=== PATIENT | female | born 1990 | race Caucasian/White ===

== ENCOUNTER 2022-07-03 23:27 | Outpatient (CLI) | payer OTHER ==
[2022-07-04 00:13] VITALS: BP 134/72; PULSE 97; RESP 18; TEMP 97
--- NOTE | 2022-08-25 13:48 | P.MSEPDOC ---
Presenting Problems - Arrival Data Date of Arrival on Unit: 07/04/22 Time of Arrival on Unit: 23:27 Mode of Transport: Ambulatory - Complaint OB-Reason for Admission/Chief Complaint: Vaginal Bleeding Medical History - Information : 3 Para: 2 Term: 2 : 0 Abortions: Spontaneous or Elective: 0 Number of Living Children: 2 - Gestational Age Gestational Age by MATTHEW (wks/days): 27 Weeks and 5 Days Review of Systems - Review of Systems Constitutional: No problems Breast: No problems ENT: No problems Cardiovascular: No problems Respiratory: No problems Gastrointestinal: No problems Genitourinary: No problems Musculoskeletal: No problems Neurological: No problems Skin: No problems Vital Signs - Temperature Temperature: 97.0 F Temperature Source: Temporal Artery Scan - Pulse Pulse Oximetery Pulse Rate: 97 Pulse Assessment Method: Pulse Oximetry - Respirations Respiratory Rate: 18 Oxygen Delivery Method: Room Air O2 Sat by Pulse Oximetry: 98 - Blood Pressure Right Arm Blood Pressure: 134/72 Blood Pressure Mean: 92 Blood Pressure Source: Automatic Cuff Medical Screen Scoring - Assessment - Baby A Baseline FHR: 135 Heart Rate - NICHD Category: Category I (Normal) Physician Notification - Physician Notified Physician Notified Date: 07/03/22 Physician Notified Time: 23:52 Physician: Stacie Batista New Order Received: Yes - Notification Comment Comment: Dr. Batista called, report given on maternal and status, c/o vagi nal. bleeding and mild intercourse following intercourse, pt has no complications with her. . No external bleeding noted (only when pt wipes), no contractions noted, and. FHTs are category 1 with audible movement. Orders to discharge pt home on pelvic. rest until she follows up with her OB. Maternal Triage Index - Maternal Triage Index Presenting for scheduled procedure w/no complaint: No - Stat/Priority 1 Stat Priority 1: No - Urgent/Priority 2 Urgent Priority 2: No - Prompt/Priority 3 Prompt Priority 3: No - Non-Urgent/Priority 4 Non-Urgent Priority 4: Yes Criteria Met for Priority 4: 27 4/7 wks, vaginal bleeding following intercourse, only spotting in triage Disposition - Disposition OB Disposition: Discharge to home Discharge Date: 07/03/22 Discharge Time: 23:57 I agree with the RN Medical Screening Exam: Yes Case reviewed; plan agreed upon as documented in EMR&OBIX.: Yes Diagnosis: RELATED CONDITIONS, UNSPECIFIED, SECOND TRIMESTER
== END 2022-07-03 23:57 | disposition home or self-care (01) ==
LOC: FBPOP 23:27
PROVIDERS: ATTEND Obstetrics & Gynecology Obstetrics
DX: O26.892 Other specified pregnancy related conditions, second trimester (principal); Z3A.27 27 weeks gestation of pregnancy; D69.9 Hemorrhagic condition, unspecified; Z88.0 Allergy status to penicillin
CPT/HCPCS: 99203

== ENCOUNTER 2024-12-02 01:24 | Emergency (ER) | payer OTHER ==
[2024-12-02 01:34] VITALS: RESP 16; TEMP 98.4
--- NOTE | 2024-12-02 02:32 | ED ---
Skin/Abscess/FB HPI - General Chief complaint: Skin/Abscess/Foreign Body Stated complaint: Pruitis Ani Time Seen by Provider: 12/02/24 02:30 Source: patient, RN notes reviewed Mode of arrival: ambulatory Limitations: no limitations - History of Present Illness Initial comments: 34-year-old female presenting for pinworm infection. States her children are positive for pinworms and patient states she has been having some anal itching at night. States she did notice 1 white worm on her anus. She is requesting treatment for this today. Denies abdominal pain, vomiting. She is able to tolerate orals. - Related Data Home Medications Medication Instructions Recorded Confirmed Iron 18 mg PO DAILY 07/03/22 07/03/22 Vit No.179/Iron/Folic 1 each PO DAILY 07/03/22 07/03/22 [ Tablet] Previous Rx's Medication Instructions Recorded Mebendazole [Emverm chew] 100 mg PO ONCE #2 tab 12/02/24 Allergies Allergy/AdvReac Type Severity Reaction Status Date / Time Penicillins Allergy Rash/Hives Verified 12/02/24 01:33 Review of Systems ROS Statement: Those systems with pertinent positive or pertinent negative responses have been documented in the HPI. ROS Other: All systems not noted in ROS Statement are negative. Past Medical History Past Medical History: No Reported History History of Any Multi-Drug Resistant Organisms: None Reported Past Surgical History: Tubal Ligation Smoking Status: Never smoker Past Alcohol Use History: None Reported Past Drug Use History: None Reported General Exam Limitations: no limitations General appearance: alert, in no apparent distress Head exam: Present: atraumatic, normocephalic, normal inspection Eye exam: Present: normal appearance, PERRL, EOMI. Absent: scleral icterus, conjunctival injection, periorbital swelling GI/Abdominal exam: Present: soft, normal bowel sounds. Absent: distended, tenderness, guarding, rebound, rigid Neurological exam: Present: alert, oriented X3 Psychiatric exam: Present: normal affect, normal mood Skin exam: Present: warm, dry, intact, normal color. Absent: rash Course Vital Signs 12/02/24 12/02/24 01:32 02:40 Temperature 98.4 F Pulse Rate 84 96 Respiratory 16 16 Rate Blood Pressure 145/98 117/77 O2 Sat by Pulse 97 96 Oximetry Medical Decision Making - Medical Decision Making Was pt. sent in by a medical professional or institution (LANA Franco, CAMPAIGN DEVELOPER, urgent care, hospital, or snf...) When possible be specific @ -No Did you speak to anyone other than the patient for history (EMS, parent, family, police, friend...)? What history was obtained from this source @ -No Did you review nursing and triage notes (agree or disagree)? Why? @ -I reviewed and agree with nursing and triage notes Were old charts reviewed (outside hosp., previous admission, EMS record, old EKG, old radiological studies, urgent care reports/EKG's, snf records)? Report findings @ -No old charts were reviewed Differential Diagnosis (chest pain, altered mental status, abdominal pain women, abdominal pain men, vaginal bleeding, weakness, fever, dyspnea, syncope, headache, dizziness, GI bleed, back pain, seizure, CVA, palpatations, mental health, musculoskeletal)? @ -Pinworms, idiopathic pruritus ani, rectal tenesmus, tapeworms, flex, roundworms EKG interpreted by me (3pts min.). @ -None X-rays interpreted by me (1pt min.). @ -None done CT interpreted by me (1pt min.). @ -None done U/S interpreted by me (1pt. min.). @ -None done What testing was considered but not performed or refused? (CT, X-rays, U/S, labs)? Why? @ -None What meds were considered but not given or refused? Why? @ -None Did you discuss the management of the patient with other professionals (professionals i.e. LANA Franco, CAMPAIGN DEVELOPER, lab, RT, psych nurse, clinical social worker, housekeeping worker, teacher, staff electronic warfare officer, case preparer and liner)? Give summary @ -No Was smoking cessation discussed for >3mins.? @ -No Was critical care preformed (if so, how long)? @ -No Were there social determinants of health that impacted care today? How? (Homelessness, low income, unemployed, alcoholism, drug addiction, transportation, low edu. Level, literacy, decrease access to med. care, snf, rehab)? @ -No Was there de-escalation of care discussed even if they declined (Discuss DNR or withdrawal of care, Hospice)? DNR status @ -No What co-morbidities impacted this encounter? (DM, HTN, Smoking, COPD, CAD, Cancer, CVA, ARF, Chemo, Hep., AIDS, mental health diagnosis, sleep apnea, morbid obesity)? @ -None Was patient admitted / discharged? Hospital course, mention meds given and route, prescriptions, significant lab abnormalities, going to OR and other pertinent info. @ -Discharge. This is a 34-year-old female presenting for anal pruritus. Patient noticed a white pinworm present on her anus and family members are positive for pinworms. No red flag symptoms. Discussed diagnosis of pinworms with patient. Prescribed mebendazole. Appropriate hygiene/cleaning regimen discussed in detail. Appropriate return precautions and follow-up care discussed. Case was discussed with my ED attending Dr. Henry. Undiagnosed new problem with uncertain prognosis? @ -No Drug Therapy requiring intensive monitoring for toxicity (Heparin, Nitro, Insulin, Cardizem)? @ -No Were any procedures done? @ -No Diagnosis/symptom? @ -Pinworms Acute, or Chronic, or Acute on Chronic? @ -Acute Uncomplicated (without systemic symptoms) or Complicated (systemic symptoms)? @ -Uncomplicated Side effects of treatment? @ -No Exacerbation, Progression, or Severe Exacerbation? @ -No Poses a threat to life or bodily function? How? (Chest pain, [place], AL, pneumonia, PE, COPD, DKA, ARF, appy, cholecystitis, CVA, Diverticulitis, Homicidal, Suicidal, threat to staff... and all critical care pts) @ -No Disposition Clinical Impression: Pinworms Disposition: HOME SELF-CARE Condition: Stable Instructions (If sedation given, give patient instructions): Pinworm Infection (ED) Additional Instructions: Take mebendazole once, then repeat in 2 weeks. Carefully handwashing after using the toilet, and before and after eating. Thoroughly launder all bedding, clothing, and toys to destroy any lingering eggs. Launder all bedding every 3 to 7 days for 3 weeks. Wash underwear and pajamas daily for 2 weeks. Follow-up with your leather stripping machine operator next week. Prescriptions: Mebendazole [Emverm chew] 100 mg PO ONCE #2 tab Is patient prescribed a controlled substance at d/c from ED?: No Referrals: Nonstaff,Physician [Primary Care Provider] - 1-2 days Time of Disposition: :31
[2024-12-02 02:44] VITALS: BP 117/77; PULSE 96
== END 2024-12-02 02:40 | disposition home or self-care (01) ==
LOC: EC 01:24
DX: B80 Enterobiasis (principal); Z88.0 Allergy status to penicillin
CPT/HCPCS: 99283